=== PATIENT | male | born 1970 | race African-American/Black ===

== ENCOUNTER 2016-09-28 10:23 | Emergency (ER) | payer SELFPAY ==
[~2016-09-28] VITALS: Ht 190.5 cm; Wt 86.0 kg
[~2016-09-28 10:23] MED LIST: ALBU8I INH; PRED20 PO; ZITH250T PO
[2016-09-28 10:25] VITALS: BP 136/75; PULSE 72; RESP 20; TEMP 97.4; O2SAT 90
[2016-09-28 10:33] VITALS: BP 129/80; PULSE 80; RESP 26
[2016-09-28 10:39] VITALS: RESP 26; O2SAT 97
[2016-09-28] MEDS ORDERED: VENTAER INH (10:46)
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
[2016-09-28] MEDS ORDERED: methylPREDNISolone SOD SUCC 125 MG/2 ML VIAL IVP ONE (11:00)
[2016-09-28] MEDS ORDERED: SODIUM CHLORIDE 0.9% FLUSH 5 ML FLUSH IVF PRN (11:00)
[2016-09-28] MEDS: RESP: ALBUTEROL 2.5 MG/IPRATROPIUM 0.5 MG NEB (SCH) INH (11:03)
[2016-09-28 11:18] VITALS: O2SAT 99
--- NOTE | 2016-09-28 11:29 | RADRPT ---
EXAM DATE/TIME: 09/28/2016 11:10 [facility] COMPARISON: CHEST SINGLE AP, May 09, 2016, 9:30. INDICATIONS : Shortness of breath. MEDICAL HISTORY : Asthma. Smoker. SURGICAL HISTORY : None. ENCOUNTER: Initial ACUITY: 1 day PAIN SCORE: 0/10 LOCATION: Bilateral chest FINDINGS: A single view of the chest demonstrates the lungs to be symmetrically aerated without evidence of mas s, infiltrate or effusion. There is hyperaeration bilaterally. The cardiomediastinal contours are unr emarkable. Osseous structures are intact. CONCLUSION: No acute disease. No significant change has occurred. Norm Jamil MD on September 28, 2016 at 11:28 Board Certified Radiologist. This report was verified electronically.
[2016-09-28] MEDS ORDERED: ALBU6.7H INH (11:37)
[2016-09-28] MEDS ORDERED: PRED50 PO (11:37)
[2016-09-28 12:01] VITALS: BP 126/72; PULSE 68; RESP 22; O2SAT 99
== END 2016-09-28 12:25 | disposition home or self-care (01) ==
LOC: NEPA 10:23
DX: J20.9 Acute bronchitis, unspecified (principal); F17.200 Nicotine dependence, unspecified, uncomplicated
CPT/HCPCS: 71010; 94640; 94664; 96374; 99283; J2930

== ENCOUNTER 2017-01-14 09:55 | Emergency (ER) | payer SELFPAY ==
[~2017-01-14] VITALS: Ht 190.5 cm; Wt 85.0 kg
[~2017-01-14 09:55] MED LIST changes: +ALBU6.7H INH; -ALBU8I INH; -PRED20 PO; +PRED50 PO; +VENTAER INH; -ZITH250T PO
[2017-01-14 09:56] VITALS: BP 109/70; PULSE 72; RESP 18; TEMP 97.5; O2SAT 98
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
[2017-01-14] MEDS ORDERED: RESP: ALBUTEROL 2.5 MG/IPRATROPIUM 0.5 MG NEB (SCH) INH ONE (11:00)
[2017-01-14] MEDS ORDERED: predniSONE 20 MG TAB PO ONE (11:00)
[2017-01-14] MEDS ORDERED: VENTAER INH (11:02)
[2017-01-14] MEDS ORDERED: PRED-503 PO (11:02)
[2017-01-14] MEDS ORDERED: AZIT500T2 PO (11:03)
== END 2017-01-14 11:49 | disposition home or self-care (01) ==
LOC: NEPK 09:55
DX: J40 Bronchitis, not specified as acute or chronic (principal); F17.200 Nicotine dependence, unspecified, uncomplicated
CPT/HCPCS: 94664; 99284; J7512